=== PATIENT | female | born 1985 | race Caucasian/White ===

== ENCOUNTER 2017-08-14 10:37 | Emergency (ER) | payer MEDICAID ==
--- NOTE | 2017-08-14 11:22 | EDM.PDOC ---
ED HPI GENERAL MEDICAL PROBLEM - General Chief Complaint: ENT Problem Stated Complaint: left ear pain, sore throat Time Seen by Provider: 08/14/17 11:10 Source of Information: Reports: Patient, Family History Limitations: Reports: No Limitations - History of Present Illness INITIAL COMMENTS - FREE TEXT/NARRATIVE: Patient presents today with left ear pain, sore throat and sinus symptoms. States has a history of sinus concerns, multiple infections. Teeth are hurting on the left side but admits that she does have cavities and needs to see the dentist as well. Patient denies fever. No cough. Sinus drainage has been thick, yellow in nature. Has been taking tylenol which does have to dull the symptoms. Onset: Gradual Duration: Day(s): Location: Reports: Head Quality: Reports: Throbbing Severity: Moderate Improves with: Reports: Medication Associated Symptoms: Denies: Chest Pain, Cough, cough w sputum, Fever/Chills, Loss of Appetite, Nausea/Vomiting, Shortness of Breath Treatments [employer]ER: Reports: Acetaminophen Left Ear Pain Score (Numeric/FACES): 9 - Related Data Allergies Allergy/AdvReac Type Severity Reaction Status Date / Time acetaminophen Allergy Hives Verified 08/14/17 10:49 [From Excedrin Back and Body] aspirin Allergy Hives Verified 08/14/17 10:49 [From Excedrin Back and Body] calcium carbonate Allergy Hives Verified 08/14/17 10:49 [From Excedrin Back and Body] Home Meds: Home Meds Gabapentin [Neurontin] 800 mg PO TID 08/14/17 [History] PARoxetine HCl [Paxil] 40 mg PO DAILY 08/14/17 [History] lamoTRIgine [Lamictal] 200 mg PO DAILY 08/14/17 [History] Past Medical History Psychiatric History: Reports: Anxiety, Depression, Other (See Below) Other Psychiatric History: 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 Denies: Throat Swelling Respiratory: Denies: Shortness of Breath, Cough, Sputum Cardiovascular: Denies: Chest Pain, Edema, Lightheadedness Endocrine: Denies: Fatigue GI/Abdominal: Denies: Abdominal Pain, Nausea, Vomiting : Reports: No Symptoms Musculoskeletal: Reports: No Symptoms Skin: Reports: No Symptoms Psychiatric: Reports: Anxiety ED EXAM, ENT - Physical Exam Exam: See Below Exam Limited By: No Limitations General Appearance: Alert, WD/WN, No Apparent Distress Ears: Normal External Exam, TM Dullness, TM Erythema, TM Fluid Nose: Normal Inspection, Nasal Discharge (mucopurulent in nature) Mouth/Throat: Normal Inspection, Pharyngeal Erythema Head: Normocephalic Neck: Normal Inspection, Supple, Lymphadenopathy (L) Respiratory/Chest: No Respiratory Distress, Lungs Clear, Normal Breath Sounds Cardiovascular: Regular Rate, Rhythm GI/Abdominal: Normal Bowel Sounds, Soft, Non-Tender Course - Vital Signs Last Recorded V/S: Last Vital Signs Temp 98.3 F 08/14/17 10:45 Pulse 88 08/14/17 10:45 Resp 20 08/14/17 10:45 BP 144/86 H 08/14/17 10:45 Pulse Ox 96 08/14/17 10:45 Departure - Departure Time of Disposition: 11:21 Disposition: Home, Self-Care 01 Condition: Good Clinical Impression: Left otitis media Qualifiers: Otitis media type: serous Chronicity: acute - Discharge Information Referrals: PCP,None [Primary Care Provider] - Forms: ED Department Discharge Additional Instructions: 1. Push fluids 2. Tylenol or ibuprofen for fever or discomfort 3. Augmentin 875 mg twice a day for 10 days 4. Follow up with dentist as directed 5. Contact us with any questions or concerns.
== END 2017-08-14 11:25 | disposition home or self-care (01) ==
LOC: CC.ED 10:37
DX: H65.02 Acute serous otitis media, left ear (principal); F17.210 Nicotine dependence, cigarettes, uncomplicated; Z88.6 Allergy status to analgesic agent; Z88.8 Allergy status to other drugs, medicaments and biological substances; Z79.899 Other long term (current) drug therapy
CPT/HCPCS: 99282

== ENCOUNTER 2023-04-05 19:44 | Emergency (ER) | payer OTHER, BC ==
[2023-04-05 20:19] LABS: BASOPHILS ABSOLUTE AUTO 0.04 10^3/uL (0.00-0.50); BASOPHILS PERCENT AUTO 0.6 % (0-1); EOSINOPHILS ABSOLUTE AUTO 0.09 10^3/uL (0.00-1.50); EOSINOPHILS PERCENT AUTO 1.4 % (0-6); HEMATOCRIT 42.9 % (37.0-47.0); HEMOGLOBIN 15.3 g/dL (12.0-16.0); IMMATURE GRAN ABSOLUTE AUTO 0.01 10^3/uL (0.00-0.49); IMMATURE GRAN PERCENT AUTO 0.2 % (0.0-4.9); LYMPHOCYTES PERCENT AUTO 25.2 % (24-44); MEAN CORPUSCULAR HGB CONC 35.7 g/dL (32.0-36.0); MEAN CORPUSCULAR VOLUME 86.8 fL (83.0-97.0); MONOCYTES ABSOLUTE AUTO 0.43 10^3/uL (0.00-1.50); MONOCYTES PERCENT AUTO 6.8 % (0-10); NEUTROPHILS ABSOLUTE AUTO 4.18 x10^3/uL (1.80-8.00); NEUTROPHILS PERCENT AUTO 65.8 % (41-71); PLATELET COUNT,PLT 271 10^3/uL (150-400); RED BLOOD CELL COUNT 4.94 x10^6/uL (4.00-5.50); WHITE BLOOD CELL COUNT,WBC 6.4 10^3/uL (4.0-11.0)
[2023-04-05 20:20] LABS: APPEARANCE,URINE CLEAR (CLEAR); BILIRUBIN,URINE NEGATIVE (NEGATIVE); COLOR,URINE LIGHT YELLOW (YELLOW); GLUCOSE,URINE NEGATIVE (NEGATIVE); KETONES,URINE NEGATIVE (NEGATIVE); LEUKOCYTE ESTERASE,URINE SMALL (NEGATIVE); NITRITE,URINE NEGATIVE (NEGATIVE); OCCULT BLOOD,URINE TRACE-INTACT (NEGATIVE); PROTEIN,URINE NEGATIVE (NEGATIVE); UROBILINOGEN,URINE 0.2 EU/dL (0.2-1.0)
[2023-04-05 20:24] LABS: RBC,URINE 0-5 /HPF (0-5); WBC,URINE 0-5 /HPF (0-5)
[2023-04-05 20:25] LABS: BACTERIA,URINE NOT SEEN /HPF (NOT SEEN); EPITHELIAL CELLS,URINE OCCASIONAL /HPF (NOT SEEN); MUCUS,URINE NOT SEEN /HPF (NOT SEEN)
[2023-04-05 20:31] LABS: EST CRCL DRUG DOSING (CG) 105.01 mL/min
[2023-04-05] MEDS ORDERED: Diphtheria,Pertussis(Acell),Tetanus Vaccine 0.5 ML Syringe IM ONE (20:31)
[2023-04-05] MEDS ORDERED: Lidocaine 1% 5 ML VIAL INJECT ONE (20:32)
[2023-04-05 20:42] LABS: CREATININE 0.7 mg/dL (0.6-1.0)
[2023-04-05 20:43] LABS: ALBUMIN 3.6 g/dL (3.4-5.0); BILIRUBIN TOTAL 0.4 mg/dL (0.0-1.0); CALCIUM 8.4 mg/dL (8.4-10.1); PROTEIN TOTAL,TP 7.8 g/dL (6.4-8.2)
[2023-04-05] MEDS ORDERED: Bacitracin/Neomycin/Polymyxin B Oint 0.9 GM U/D Packet TOP ONE (21:04)
== END 2023-04-05 21:30 | disposition home or self-care (01) ==
LOC: CC.ED 19:44
DX: S01.112A Laceration without foreign body of left eyelid and periocular area, initial encounter (principal); Z88.6 Allergy status to analgesic agent; Z88.8 Allergy status to other drugs, medicaments and biological substances; V89.2XXA Person injured in unspecified motor-vehicle accident, traffic, initial encounter; Y92.89 Other specified places as the place of occurrence of the external cause
CPT/HCPCS: 12011; 36415; 70450; 80053; 81001; 81025; 85025; 90471; 90715; 99283; 99284-25; A9270-GY; J3490